=== PATIENT | female | born 1965 | race Caucasian/White ===

== ENCOUNTER 2020-12-03 09:06 | Day surgery (SDC) | payer BC ==
[~2020-12-03] VITALS: Ht 160 cm; Wt 55.0 kg
[2020-12-03] MEDS ORDERED: MULT-464 PO (10:00)
[2020-12-03] MEDS ORDERED: BLAC20TA PO (10:00)
[2020-12-03] MEDS ORDERED: [UNRECOGNIZED DRUG - CODE] PO (10:00)
[2020-12-03] MEDS ORDERED: CALCIUM PO (10:00)
[2020-12-03] MEDS ORDERED: LIFI1DRO EACHEYE (10:00)
[2020-12-03] MEDS ORDERED: OMEG-14 PO (10:00)
[2020-12-03] MEDS ORDERED: SODIUM CHLORIDE 0.9% 1,000 ML IV SCH (10:00)
[2020-12-03] MEDS ORDERED: LIDOCAINE 1%, 20ML ONE (10:17)
[2020-12-03] MEDS ORDERED: MIDAZOLAM 1 MG/ML, 2ML ONE (10:17)
[2020-12-03] MEDS ORDERED: FENTANYL PF 100 MCG/2ML ONE (10:17)
[2020-12-03] MEDS ORDERED: ISOPROTERENOL 0.2MG/ML, 5ML ONE (10:17)
[2020-12-03 10:19] LABS: BASOPHILS % (AUTO) 1 % (0-1); EOSINOPHILS % (AUTO) 5 % (1-7); LYMPHOCYTES % (AUTO) 35 % (22-44); MEAN CORPUSCULAR HEMOGLOBIN 31.8 pg (27.0-34.8); MEAN CORPUSCULAR HGB CONC 34.6 g/dL (32.4-35.8); MEAN PLATELET VOLUME 7.5 fL (7.4-10.4); MONOCYTES % (AUTO) 5 % (2-9); NEUTROPHILS % (AUTO) 55 % (42-75); PLATELET COUNT 187 x10^3/uL (130-400); RED BLOOD COUNT 4.77 x10^6/uL (3.82-5.3); RED CELL DISTRIBUTION WIDTH 12.5 % (9.6-15.2)
[2020-12-03 10:30] LABS: ALANINE AMINOTRANSFERASE 24 U/L (12-78); ALBUMIN 3.8 g/dL (3.4-5.0); CALCIUM 8.8 mg/dL (8.5-10.1); CREATININE 0.95 mg/dL (0.55-1.02)
[2020-12-03] MEDS ORDERED: PLEASE ENTER HEIGHT AND WEIGHT MC SCH (10:30)
[2020-12-03 10:32] LABS: ALKALINE PHOSPHATASE 75 U/L (45-117); BILIRUBIN,TOTAL 0.6 mg/dL (0.2-1.0); TOTAL PROTEIN 7.2 g/dL (6.4-8.2)
[2020-12-03 10:41] LABS: CHLORIDE 108 mmol/L (98-107)
[2020-12-03 10:42] LABS: ANION GAP 3 mmol/L (5-15)
[2020-12-03] MEDS ORDERED: LIFITEGRAST EACHEYE SCH (21:00)
[2020-12-04] MEDS ORDERED: FISH OIL PO SCH (09:00)
[2020-12-04] MEDS ORDERED: OMEGA PO SCH (09:00)
[2020-12-04] MEDS ORDERED: CALCIUM PO SCH (09:00)
[2020-12-04] MEDS ORDERED: BLACK COHOSH ROOT PO SCH (09:00)
[2020-12-04] MEDS ORDERED: OSPEMIFENE 60 MG PO SCH (09:00)
[2020-12-04] MEDS ORDERED: MULTIVITAMIN WITH MINERALS PO SCH (09:00)
[2020-12-04] MEDS ORDERED: [UNRECOGNIZED DRUG - OTHER] PO SCH (09:00)
[2020-12-04] MEDS ORDERED: FATTY ACIDS PO SCH (09:00)
== END 2020-12-03 16:38 | disposition home or self-care (01) ==
LOC: CACL 09:06
PROVIDERS: ATTEND Internal Medicine Cardiovascular Disease
DX: I47.1 Supraventricular tachycardia (principal); Z79.899 Other long term (current) drug therapy; Z88.8 Allergy status to other drugs, medicaments and biological substances
CPT/HCPCS: 36415; 71046; 80053; 85025; 93005; 93613; 93621; 93623; 93653; 99156; 99157; C1730; C1894; C2630; J2250; J3010